=== PATIENT | male | born 1995 | race Caucasian/White ===

== ENCOUNTER 2017-06-29 21:38 | Emergency (ER) | payer OTHER ==
[2017-06-29] MEDS: LORAZEPAM 1 MG TAB PO (22:20)
[2017-06-29] MEDS: HYDROCODONE/APAP (5/325) TAB PO (22:20)
== END 2017-06-29 22:49 | disposition home or self-care (01) ==
LOC: FTE 22:49
DX: F41.9 Anxiety disorder, unspecified (principal); F11.20 Opioid dependence, uncomplicated
CPT/HCPCS: 99283; Z7502